=== PATIENT | female | born 1960 | race Hispanic/Latino ===

== ENCOUNTER 2018-04-01 11:37 | Inpatient (IN) | payer BC ==
[2018-04-01 11:59] VITALS: BMI 33.5
--- NOTE | 2018-04-01 12:32 | ED PDOC ---
Arrival/HPI - General Chief Complaint: Psychiatric Evaluation Time Seen by Provider: 04/01/18 11:39 Historian: Patient - History of Present Illness Narrative History of Present Illness (Text): 04/01/18 12:03 57 year old female, with past medical history of hypertension, and hyperlipidemia, presents to the Emergency department complaining of "feeling depressed" today. Patient expresses suicidal ideation stating she does not want to live anymore, however, patient does not have any plans. Patient denies homicidal ideation. Patient denies any other somatic complaints. She denies any fever, chills, nausea, vomiting, diarrhea, abdominal pain, chest pain, shortness of breath, neck pain, back pain, headache, dizziness, or any other complaints. Patient admits to smoking cigarettes everyday. Time/Duration: Prior to Arrival Symptom Onset: Gradual Symptom Course: Unchanged Activities at Onset: Light Context: Home Past Medical History - Provider Review Nursing Documentation Reviewed: Yes - Cardiac Hx Hypertension: Yes Hx Pacemaker: No - Neurological Hx Migraine: Yes Hx Paralysis: No - Renal Hx Kidney Stones: Yes Other/Comment: abscess removed from bladder - Endocrine/Metabolic Hx Endocrine Disorders: No - Hematological/Oncological Hx Blood Transfusions: Yes Hx Blood Transfusion Reaction: No - Musculoskeletal/Rheumatological Hx Musculoskeletal Disorders: Yes Hx Back Pain: Yes Other/Comment: bilateral leg pain - Gastrointestinal Hx Constipation: Yes Hx Irritable Bowel: Yes - Genitourinary/Gynecological Hx Genitourinary Disorders: No - Psychiatric Hx Anxiety: Yes Hx Depression: Yes Hx Emotional Abuse: No Hx Physical Abuse: No Hx Substance Use: No - Surgical History Hx Hysterectomy: Yes Other/Comment: hemorrhoid removal - Anesthesia Hx Anesthesia Reactions: Yes (VOMITING 3 DAYS POST OP LITHOTRIPSY) Hx Malignant Hyperthermia: No - Suicidal Assessment Feels Threatened In Home Enviroment: No Family/Social History - Physician Review Nursing Documentation Reviewed: Yes Family/Social History: No Known Family HX Smoking Status: Heavy Smoker > 10 Cigarettes Daily Hx Alcohol Use: No Hx Substance Use: No Allergies/Home Meds Allergies/Adverse Reactions: Allergies latex Allergy (Verified 04/02/18 03:54) RASH caffeine Adverse Reaction (Verified 04/02/18 03:54) PAIN Home Medications: Home Meds Medication Instructions Recorded Confirmed Atorvastatin [Lipitor] 20 mg PO DAILY 12/15/11 04/02/18 Metoprolol Succinate XL [Toprol XL] 75 mg PO DAILY 12/15/11 04/02/18 RX: Topiramate [Topamax] 50 mg PO BID 04/01/18 04/02/18 Review of Systems - Physician Review All systems were reviewed & negative as marked: Yes - Review of Systems Constitutional: absent: Fevers Respiratory: absent: SOB, Cough Cardiovascular: absent: Chest Pain Gastrointestinal: absent: Abdominal Pain, Diarrhea, Nausea, Vomiting Musculoskeletal: absent: Back Pain, Neck Pain Neurological: absent: Headache, Dizziness Psychiatric: Suicidal Ideation Physical Exam Vital Signs Reviewed: Yes Vital Signs Temp Pulse Resp BP Pulse Ox 04/01/18 11:56 97.9 F 61 18 150/92 H 99 Temperature: Afebrile Blood Pressure: Hypertensive Pulse: Regular Respiratory Rate: Normal Appearance: Positive for: Well-Appearing, Non-Toxic, Comfortable Pain Distress: None Mental Status: Positive for: Alert and Oriented X 3 - Systems Exam Head: Present: Atraumatic, Normocephalic Pupils: Present: PERRL Extroacular Muscles: Present: EOMI Conjunctiva: Present: Normal Mouth: Present: Moist Mucous Membranes Neck: Present: Normal Range of Motion Respiratory/Chest: Present: Clear to Auscultation, Good Air Exchange. No: Respiratory Distress, Accessory Muscle Use Cardiovascular: Present: Regular Rate and Rhythm, Normal S1, S2. No: Murmurs Abdomen: No: Tenderness, Distention, Peritoneal Signs Back: Present: Normal Inspection Upper Extremity: Present: Normal Inspection. No: Cyanosis, Edema Lower Extremity: Present: Normal Inspection. No: Edema Neurological: Present: GCS=15, CN II-XII Intact, Speech Normal Skin: Present: Warm, Dry, Normal Color. No: Rashes Psychiatric: Present: Alert, Oriented x 3, Normal Insight, Normal Concentration, Suicidal Ideation Medical Decision Making ED Course and Treatment: 04/01/18 12:03 Impression: 57 year old female presents to the Emergency department expressing depressed mood and suicidal ideation. Differential Diagnosis included but are not limited to: Suicidal Ideation Plan: -- EKG -- Labs -- Chest X-ray -- Urinalysis -- Reassess and disposition Prior Visits: Notes and results from previous visits were reviewed. Progress Notes: 04/01/18 12:15 EKG: Ordered, reviewed, and independently interpreted the EKG. Rate : 57 BPM Rhythm : Bradycardia Interpretation : No ST-segment elevations or depressions, no T-wave inversions, normal intervals. 04/01/18 12:15 Chest X-ray reviewed by me, shows no acute processes. 04/03/18 17:40 medically clear - RAD Interpretation Radiology Orders: 04/01/18 12:03 CHEST PORTABLE [RAD] Stat Customer Relations Specialist: Radiologist - Medication Orders Current Medication Orders: Discontinued Medications Nicotine (Nicoderm Cq) 1 patch TD DAILY ANGELINE Nicotine (Nicoderm Cq) 1 patch TD STAT STA Stop: 04/01/18 12:04 Disposition/Present on Arrival - Present on Arrival Any Indicators Present on Arrival: No History of DVT/PE: No History of Uncontrolled Diabetes: No Urinary Catheter: No History of Decub. Ulcer: No History Surgical Site Infection Following: None - Disposition Have Diagnosis and Disposition been Completed?: Yes Diagnosis: Depression Disposition: HOSPITALIZED Disposition Time: 07:00 Patient Problems: Current Active Problems Problem Status Onset Depression Acute Condition: STABLE
--- NOTE | 2018-04-01 13:24 | RAD ---
Date of service: 04/01/2018 HISTORY: tom COMPARISON: 10/23/2014 FINDINGS: LUNGS: No active pulmonary disease. PLEURA: No significant pleural effusion identified, no pneumothorax apparent. CARDIOVASCULAR: Normal. OSSEOUS STRUCTURES: No significant abnormalities. VISUALIZED UPPER ABDOMEN: Normal. OTHER FINDINGS: None. IMPRESSION: No active disease.
--- NOTE | 2018-04-01 14:03 | CARD ---
APPROVED REPORT Date of service: 04/01/2018 EKG Measurement Heart [id number] <Conclusion> Sinus bradycardia Otherwise normal ECG
[2018-04-01 16:04] LABS: BASO # 0.02 K/mm3 (0.0-2.0); BASO % 0.3 % (0.0-3.0); EOS # 0.2 (0.0-0.7); EOS % 2.4 % (1.5-5.0); GRAN # 4.58 (1.4-6.5); GRAN % 64.6 % (50.0-68.0); HEMOGLOBIN 14.6 g/dL (12.0-16.0); LYMPH # 2.1 (1.2-3.4); LYMPH % 29.2 % (22.0-35.0); MEAN CELL VOLUME 90.9 fl (80.0-105.0); MEAN CORPUSCULAR HEMOGLOBIN 30.4 pg (25.0-35.0); MEAN CORPUSCULAR HGB CONC 33.4 g/dl (31.0-37.0); MEAN PLATELET VOLUME 10.9 fl (7.0-11.0); MONO # 0.3 (0.1-0.6); MONO % 3.5 % (1.0-6.0); RBC 4.81 10^6/uL (3.5-6.1); RED CELL DISTRIBUTION WIDTH 13.1 % (11.5-14.5); WHITE BLOOD COUNT 7.1 10^3/ul (4.5-11.0)
[2018-04-01 16:08] LABS: ACETAMINOPHEN < 10.0 ug/ml (10.0-20.0); ALB/GLOB RATIO 1.4 (1.1-1.8); ALBUMIN 4.1 g/dL (3.0-4.8); ALT/SGPT 27 U/L (7-56); AST/SGOT 18 U/L (14-36); BLOOD UREA NITROGEN 22 mg/dL (7-21); CALCIUM 9.5 mg/dL (8.4-10.5); GFR NON-AFRICAN AMERICAN 57; SALICYLATE < 1 mg/dL (2.0-20.0)
[2018-04-01 16:14] LABS: PH,URINE 6.5 (4.7-8.0); URINE BILIRUBIN NEGATIVE (NEGATIVE); URINE BLOOD NEGATIVE (NEGATIVE); URINE GLUCOSE (UA) NEGATIVE (NEGATIVE); URINE LEUKOCYTE ESTERASE TRACE Leu/uL (NEGATIVE); URINE PROTEIN NEGATIVE mg/dL (<30 mg/dL); URINE UROBILINOGEN 0.2 E.U./dL (<1 E.U./dL)
[2018-04-01 16:15] LABS: URINE APPEARANCE CLEAR (CLEAR); URINE COLOR LIGHT YELLOW (YELLOW)
[2018-04-01 16:20] LABS: URINE AMORPHOUS SEDIMENT TRACE; URINE BACTERIA TRACE (NEG); URINE RBC NEGATIVE /hpf (0-2)
[2018-04-01 16:42] LABS: BARBITURATES, UR NEGATIVE (NEGATIVE); BENZODIAZEPINES, UR POSITIVE (NEGATIVE); OPIATES, UR NEGATIVE (NEGATIVE); PHENCYCLIDINE, UR NEGATIVE (NEGATIVE)
[2018-04-01 20:47] VITALS: O2SAT 98
[2018-04-01] MEDS ORDERED: Magnesium Hydroxide Susp 30 ml UD PO PRN (21:54)
--- NOTE | 2018-04-02 04:12 | PCM.BM ---
Treatment Plan Problems - Problems identified on initial assessmt Poor coping skills Date Initiated: 04/01/18 Time Initiated: 04:09 Assessment reference: NA Status: Monitor hopelessness Date Initiated: 04/01/18 Time Initiated: 21:45 Assessment reference: NA Status: Referred Treatment assets and liabiliti Patient Assests: motivated, good interpersonal skills Patient Liabilities: financial problems - Milieu Protocol Maintain good personal hygiene: daily Encourage regular showers, daily Remind patient to perform daily oral care, daily Assist patient to perform ADL's Maintain personal safety: daily Educate patient to report safety concerns to staff, daily Monitor environment for contraband/sharps Medication safety: Monitor for expected outcome, potential side effects: daily, Assess barriers to learning: daily, Assess readiness for medication education: daily Family Contact Family contact: Patient agrees to contact Family contact name: Vimal (Spouse) - Goals for Treatment Patient goals for treatment: To get better Discharge/Continuing Care - Education Needs Education Needs: Patient Medication, Patient Diagnosis/Disease Process, Patient Coping Skills
[2018-04-02 07:33] VITALS: RESP 20
[2018-04-02 08:27] LABS: GLUCOSE,FASTING 94 mg/dL (65-110); HDL CHOLESTEROL 33 mg/dL (29-60)
[2018-04-02 08:38] LABS: LDL CHOLESTEROL 61 mg/dL (0-129)
[2018-04-02] MEDS ORDERED: Bupivacaine 0.5% Inj(30mL) IJ ONE (14:45)
[2018-04-02] MEDS ORDERED: MethylPREDNISolone Depo 40 mg/ml Inj IM ONE (14:45)
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
--- NOTE | 2018-04-02 18:58 | PN ---
DATE: 04/02/2018 SUBJECTIVE: The patient was admitted in the Behavioral Care Unit for depression. The patient has significant past history. She has hypertension, hyperlipidemia. She has history of migraine, osteoarthritis, cervical spondylosis, hip pain, knee pain. The patient also has history of renal stones. The patient has history of bladder infection with abscess in the bladder that had been drained in the past. The patient also has a history of internal and external hemorrhoids. PHYSICAL EXAMINATION: GENERAL: The patient is pleasant. She complains of pain in the hip and she has had cortisone injection by Dr. Devonte Henley, orthopedic surgeon. She is seen resting in bed. VITAL SIGNS: Pulse is 54, blood pressure 123/87, respirations are 20, O2 sat is 98% on room air. HEENT: Head: Normocephalic. some reddish color. NECK: The thyroid is not enlarged. Carotid pulses are present. LUNGS: Trachea central. Breath sounds vesicular. No adventitious sounds. HEART: Normal sinus rhythm. S1, S2 present. ABDOMEN: Soft. Liver and spleen not palpable. BODY BUILDER: The patient has no focal deficits noted. LABORATORY DATA: The patient's blood work done in the hospital; hemoglobin is 14.6, white count is within normal range. The patient's chemistry; BUN is 22, creatinine is 1. Sugar is 94. Triglycerides are 133. Total cholesterol 124. The patient has been on Lipitor. The patient's TSH is 1.58, within normal range. Chest x-ray is clear. EKG showed normal sinus rhythm. The patient had recent diagnosis of depression. She had medical condition for which she needs medical management. List of medication consist of Ativan 2 mg p.o. every 6 hours p.r.n. The patient is on Geodon 20 mg every 6 hours p.r.n. The patient is on Maalox. The patient gets nicotine patch daily. The patient is on Prozac 10 mg daily, Sonata 5 mg at bedtime, Topamax 50 mg b.i.d., and Vistaril 50 mg every 8 hours p.r.n. for anxiety. The patient was also placed on Tylenol every 6 hours for pain. On review of her medications at outpatient shows the patient was on Percocet 10/325 for pain prescribed by a physician in [place]. However, at this time, we will give the patient Ultram 50 mg every 6 hours for pain and we will follow up. Sumaya Benitez MD
--- NOTE | 2018-04-03 02:20 | CON ---
DATE: 04/02/2018 ORTHOPEDIC CONSULT HISTORY OF PRESENT ILLNESS: The patient is a 57-year-old female complaining of primarily right hip pain with point tenderness over the right hip bursa, not the groin. Range of motion is good and there is no evidence of underlying osteoarthritis as the hip moves freely and both legs lengths are the same and full range of motion, but she has tenderness at right hip bursa over the greater trochanter with abductor muscles have increase pain when cross leg test is done on the right side. So with this, right hip bursitis, because she has trigger point pain. So, I told her the benefits of the cortisone injection, which was done with Depo-Medrol and Marcaine to decrease the inflammation and the pain. I told the nurse to put a little ice on it tonight and warm compressors and to do therapy for strengthening exercises. FINAL DIAGNOSIS: Right hip bursitis. I injected with Depo-Medrol and Marcaine for pain relief. Devonte Henley DO [place]
--- NOTE | 2018-04-03 11:55 | PN ---
DATE: 04/03/2018 SUBJECTIVE: The patient is in [facility] Behavioral Care Unit. She is admitted with depression. She has a history of arthritis, migraine. She has a history of cervical spondylosis and the patient also has history of hemorrhoids, urinary tract infection with abscess in the bladder that had been drained in the past. She is seen this morning, ambulating very gingerly with a walker. She is complaining of pain in the knees and the back. PHYSICAL EXAMINATION VITAL SIGNS: The pulse is 61, blood pressure 140/80, respirations are 20, O2 sat is 98% on room air. LUNGS: Clear. HEART: Normal sinus rhythm. ABDOMEN: Soft. Liver and spleen not palpable. MATERIAL HANDLER: No focal deficits. LABORATORY DATA: The patient's blood work was within reasonable range. The patient has family history of gout, so we will do a uric acid level and also sed rate. MEDICATIONS: Consist of Ativan. The patient is on Geodon, magnesium, milk of magnesia, nicotine patch for withdrawal from cigarette smoking. The patient is on topiramate, Sonata, Prozac. The patient is also getting Tramadol 50 mg three times a day p.r.n. for pain and Vistaril 50 mg p.o. every 8 hours for anxiety. Her condition appeared to be medically stable, needs acute management of degenerative arthritic condition. She is getting treatment for depression which probably needs more adjustment. Sumaya Benitez MD
--- NOTE | 2018-04-03 16:42 | PCM.PYCHPN ---
Psychiatric Progress Note - Psychiatric Progress Note Patient seen today, length of contact: 30 minutes Patient Chief Complaint: "it was a lot of things which bothered me" Problems Identified/Issues Discussed: Suicide/ homicide prevention, past psychiatric h/o, current psychiatric symptoms, medical problems, risk/benefits and alternatives of medications, medications compliance, coping strategies, substance abuse h/o, relapse prevention, importance of follow up with psychiatrist and therapist, discharge plan. Medical Problems: see HPI Diagnostic Results: 04/01/18 15:45 04/01/18 15:45 Lab Results 04/02/18 07:30: RPR Nonreactive 04/02/18 07:30: TSH 3rd Generation 1.58 04/02/18 07:30: Fasting Glucose 94, Triglycerides 133, Cholesterol 124 L, LDL Cholesterol Direct 61, HDL Cholesterol 33 04/01/18 16:00: Urine Opiates Screen Negative, Urine Methadone Screen Negative, Ur Barbiturates Screen Negative, Ur Phencyclidine Scrn Negative, Ur Amphetamines Screen Negative, U Benzodiazepines Scrn Positive H, U Oth Cocaine Metabols Negative, U Cannabinoids Screen Positive H 04/01/18 16:00: Urine Color Light yellow, Urine Appearance Clear, Urine pH 6.5, Ur Specific [place] 1.020, Urine Protein Negative, Urine Glucose (UA) Negative, Urine Ketones Negative, Urine Blood Negative, Urine Nitrate Negative, Urine Bilirubin Negative, Urine Urobilinogen 0.2, Ur Leukocyte Esterase Trace H, Urine RBC Negative, Urine WBC 1 - 3, Ur Epithelial Cells 3 - 4, Amorphous Sediment Trace, Urine Bacteria Trace 04/01/18 15:45: Alcohol, Quantitative < 10 04/01/18 15:45: Salicylates < 1 L, Acetaminophen < 10.0 L 04/01/18 15:45: Sodium 142, Potassium 4.5, Chloride 111 H, Carbon Dioxide 23, Anion Gap 12, BUN 22 H, Creatinine 1.0, Est GFR ( Amer) > 60, Est GFR (Non-Af Amer) 57, Random Glucose 98, Calcium 9.5, Magnesium 2.1, Total Bilirubin 0.6, AST 18, ALT 27, Alkaline Phosphatase 54, Total Protein 6.9, Albumin 4.1, Globulin 2.8, Albumin/Globulin Ratio 1.4 04/01/18 15:45: WBC 7.1, RBC 4.81, Hgb 14.6, Hct 43.7, MCV 90.9, MCH 30.4, MCHC 33.4, RDW 13.1, Plt Count 157, MPV 10.9, Gran % 64.6, Lymph % (Auto) 29.2, [place] % (Auto) 3.5, Eos % (Auto) 2.4, Baso % (Auto) 0.3, Gran # 4.58, Lymph # (Auto) 2.1, [place] # (Auto) 0.3, Eos # (Auto) 0.2, Baso # (Auto) 0.02 Vital Signs Temp Pulse Resp BP Pulse Ox 04/03/18 07:34 98.3 F 61 20 139/84 04/02/18 16:00 80 144/82 04/02/18 07:32 97.6 F 64 20 123/87 04/01/18 20:46 98 04/01/18 17:09 62 18 135/90 99 04/01/18 15:30 64 18 149/87 99 04/01/18 13:00 68 18 144/80 99 04/01/18 11:56 97.9 F 61 18 150/92 H 99 DSM 5 Symptoms Update: shortly patient is 57 year old male, reported history of depression and anxiety, patient denied history of being admitted to the psychiatric inpatient unit, denied history or suicidal attempts, patient has multiple social issues including family conflict with her brother in law, recent loss of her younger sister in May last year for pancreatic cancer, patient other sister has multiple strokes and currently lives in the alf, patient's son is addicted to opioids currently under treatment, patient also has marital problems, patient tried her best to schedule appointment with outpatient program but unfortunately next appointment was given to her in June 2018, patient was feeling overwhelmed, depressed, hopeless, helpless, express suicidal ideation with a plan to cut her wrist or overdose on medication patient was evaluated in the emergency room by PES worker, patient is willing to be admitted to the psychiatric inpatient unit, patient failed outpatient treatment, at present moment requires further evaluation, stabilization, medication initiation and titration. patient was seen and examined today at the treatment team meeting, patient presented with psychomotor retardation, marginal personal hygiene, very slow with her responses, monotonic low-volume and underproductive speech, fair ADLs. patient complained that she did not sleep last night Patient reported that her mood is the same, patient was appreciated for orthopedist consult as well as medical consult. As per staff patient still appears to be depressed, at times irritable, patient is self isolative. No agitation, no aggression. DSM 5 Diagnosis: major depressive disorder,recurrent, severe, no psychosis Rule out adjustment disorder with depressed and anxious mood Medication Change: Yes (sonata increased, trazodone started at the nighttime) Medical Record Reviewed: Yes Consults ordered or reviewed: medical consult ortho consult Mental Status Examination - Cognitive Function Orientation: Person, Place Memory: Intact Attention: Poor Concentration: Poor Association: WNL Fund of Knowledge: WNL - Mood Mood: Depressed - Affect Affect: Flat - Formal Thought Process Formal Thought Process: Circumstantial (over inclusive, circumstantial) - Suicidal Ideation Suicidal Ideation: No - Homicidal Ideation Homicidal Ideation: No Goal/Treatment Plan - Goal/Treatment Plan Need for Continued Stay: Remain at risks for inpatient hospitalization, Severe depression anxiety, Discharge may exacerbated symptoms, Severe functional impairment Progress Toward Problem(s) and Goals/Treatment Plan: Milieu/structure/supportive therapy Medical consult appreciated Orthopedic consult appreciated physical therapy evaluation prozac0 mg started for depression and anxiety Topamax for mood stabilization as well as headache prophylaxis Sonata will be increased to 10 mg at the nighttime Trazodone 50 mg as needed for insomnia and depression SW consultation for discharge plan and social issues Family involvement Follow up on labs Will monitor closely Pt was educated about risk/benefits and alternatives of medications, coping strategies (safety plan, suicide prevention), relapse prevention, importance of follow up with psychiatrist and therapist, stay away from drugs/alcohol/smoking Estimated Date of D/C: 04/08/18
[2018-04-04] MEDS: Alum-Mag Hydrox-Simethicone Susp (30 mL) PO PRN (02:01)
--- NOTE | 2018-04-04 15:29 | PCM.PYCHPN ---
Psychiatric Progress Note - Psychiatric Progress Note Patient seen today, length of contact: 30 minutes Patient Chief Complaint: "I slept better, my mood is improving" Problems Identified/Issues Discussed: Suicide/ homicide prevention, past psychiatric h/o, current psychiatric symptoms, medical problems, risk/benefits and alternatives of medications, medications compliance, coping strategies, substance abuse h/o, relapse prevention, importance of follow up with psychiatrist and therapist, discharge plan. Medical Problems: see HPI Diagnostic Results: 04/01/18 15:45 04/01/18 15:45 Lab Results 04/02/18 07:30: RPR Nonreactive 04/02/18 07:30: TSH 3rd Generation 1.58 04/02/18 07:30: Fasting Glucose 94, Triglycerides 133, Cholesterol 124 L, LDL Cholesterol Direct 61, HDL Cholesterol 33 04/01/18 16:00: Urine Opiates Screen Negative, Urine Methadone Screen Negative, Ur Barbiturates Screen Negative, Ur Phencyclidine Scrn Negative, Ur Amphetamines Screen Negative, U Benzodiazepines Scrn Positive H, U Oth Cocaine Metabols Negative, U Cannabinoids Screen Positive H 04/01/18 16:00: Urine Color Light yellow, Urine Appearance Clear, Urine pH 6.5, Ur Specific [place] 1.020, Urine Protein Negative, Urine Glucose (UA) Negative, Urine Ketones Negative, Urine Blood Negative, Urine Nitrate Negative, Urine Bilirubin Negative, Urine Urobilinogen 0.2, Ur Leukocyte Esterase Trace H, Urine RBC Negative, Urine WBC 1 - 3, Ur Epithelial Cells 3 - 4, Amorphous Sediment Trace, Urine Bacteria Trace 04/01/18 15:45: Alcohol, Quantitative < 10 04/01/18 15:45: Salicylates < 1 L, Acetaminophen < 10.0 L 04/01/18 15:45: Sodium 142, Potassium 4.5, Chloride 111 H, Carbon Dioxide 23, Anion Gap 12, BUN 22 H, Creatinine 1.0, Est GFR ( Amer) > 60, Est GFR (Non-Af Amer) 57, Random Glucose 98, Calcium 9.5, Magnesium 2.1, Total Bilirubin 0.6, AST 18, ALT 27, Alkaline Phosphatase 54, Total Protein 6.9, Albumin 4.1, Globulin 2.8, Albumin/Globulin Ratio 1.4 04/01/18 15:45: WBC 7.1, RBC 4.81, Hgb 14.6, Hct 43.7, MCV 90.9, MCH 30.4, MCHC 33.4, RDW 13.1, Plt Count 157, MPV 10.9, Gran % 64.6, Lymph % (Auto) 29.2, [place] % (Auto) 3.5, Eos % (Auto) 2.4, Baso % (Auto) 0.3, Gran # 4.58, Lymph # (Auto) 2.1, [place] # (Auto) 0.3, Eos # (Auto) 0.2, Baso # (Auto) 0.02 Vital Signs Temp Pulse Resp BP Pulse Ox 04/03/18 07:34 98.3 F 61 20 139/84 04/02/18 16:00 80 144/82 04/02/18 07:32 97.6 F 64 20 123/87 04/01/18 20:46 98 04/01/18 17:09 62 18 135/90 99 04/01/18 15:30 64 18 149/87 99 04/01/18 13:00 68 18 144/80 99 04/01/18 11:56 97.9 F 61 18 150/92 H 99 Microbiology 04/01/18 20:14 Urine Culture - Final Urine,Clean Catch Corynebacterium Species DSM 5 Symptoms Update: shortly patient is 57 year old male, reported history of depression and anxiety, patient denied history of being admitted to the psychiatric inpatient unit, denied history or suicidal attempts, patient has multiple social issues including family conflict with her brother in law, recent loss of her younger sister in May last year for pancreatic cancer, patient other sister has multiple strokes and currently lives in the [place] [facility], patient's son is addicted to opioids currently under treatment, patient also has marital problems, patient tried her best to schedule appointment with outpatient program but unfortunately next appointment was given to her in June 2018, patient was feeling overwhelmed, depressed, hopeless, helpless, express suicidal ideat ion with a plan to cut her wrist or overdose on medication patient was evaluated in the emergency room by PES worker, patient is willing to be admitted to the psychiatric inpatient unit, patient failed outpatient treatment, at present moment requires further evaluation, stabilization, medication initiation and titration. patient was seen and examined today next to the nursing station, pt said she feels better, pt said that she feels better because of her sleep is improving, pt has visited by her , "now we are at the same page, we are going to carol my brother in law". patient also reported improvement with her pain in her hip and knee, overall presented better. As per staff patient still appears to be depressed, at times irritable, patient is more visible in the unit. so far patient tolerated medications well, no side effects observed or reported, aims 0, no EPS. No agitation, no aggression. DSM 5 Diagnosis: major depressive disorder,recurrent, severe, no psychosis Rule out adjustment disorder with depressed and anxious mood Medication Change: No (adjusted yesterday) Medical Record Reviewed: Yes Consults ordered or reviewed: medical consult appreciated ortho consult Mental Status Examination - Cognitive Function Orientation: Person, Place Memory: Intact Attention: Poor (some improvement) Concentration: Poor (some improvement) Association: WNL Fund of Knowledge: WNL - Mood Mood: Depressed (I feel better) - Affect Affect: Constricted (but more reactive and mood congruent) - Formal Thought Process Formal Thought Process: Circumstantial (over inclusive, circumstantial) - Suicidal Ideation Suicidal Ideation: No - Homicidal Ideation Homicidal Ideation: No Goal/Treatment Plan - Goal/Treatment Plan Need for Continued Stay: Remain at risks for inpatient hospitalization, Severe depression anxiety, Discharge may exacerbated symptoms, Severe functional impairment Progress Toward Problem(s) and Goals/Treatment Plan: Milieu/structure/supportive therapy Medical consult appreciated Orthopedic consult appreciated physical therapy evaluation prozac 20 mg started for depression and anxiety Topamax for mood stabilization as well as headache prophylaxis Sonata increased to 10 mg at the nighttime Trazodone 50 mg as needed for insomnia and depression SW consultation for discharge plan and social issues Family involvement Follow up on labs Will monitor closely Pt was educated about risk/benefits and alternatives of medications, coping strategies (safety plan, suicide prevention), relapse prevention, importance of follow up with psychiatrist and therapist, stay away from drugs/alcohol/smoking medical team was notified about urine analysis results Estimated Date of D/C: 04/08/18
--- NOTE | 2018-04-04 16:01 | CP.PCM.PN ---
Subjective - Date & Time of Evaluation Date of Evaluation: 04/04/18 Time of Evaluation: 08:05 - Subjective Subjective: Patient seen this morning. She is admitted with depression. She also suffers from degenerative arthritis and migraine. Objective - Vital Signs/Intake and Output Vital Signs (last 24 hours): Temp Pulse Resp BP Pulse Ox 98.3 F 81 20 160/95 H 98 04/03/18 07:34 04/03/18 16:00 04/03/18 07:34 04/03/18 16:00 04/01/18 20:46 - Medications Medications: Current Medications Acetaminophen (Tylenol 325mg Tab) 650 mg PO Q6H PRN PRN Reason: Pain, Mild (1-3) Al Hydrox/Mg Hydrox/Simethicone (Maalox Plus 30 Ml) 30 ml PO DAILY PRN PRN Reason: Dyspepsia Last Admin: 04/04/18 02:01 Dose: 30 ml Ciprofloxacin (Cipro) 250 mg PO BID [facility]; Protocol Stop: 04/05/18 15:29 Last Admin: 04/04/18 15:54 Dose: 250 mg Fluoxetine HCl (Prozac) 10 mg PO DAILY [facility] Last Admin: 04/04/18 09:34 Dose: 10 mg Hydroxyzine Pamoate (Vistaril) 50 mg PO Q8 PRN; Protocol PRN Reason: Anxiety Lorazepam (Ativan) 2 mg PO Q6 PRN; Protocol PRN Reason: Anxiety Last Admin: 04/03/18 00:13 Dose: 2 mg Magnesium Hydroxide (Milk Of Magnesia) 30 ml PO DAILY PRN PRN Reason: Constipation Nicotine (Nicoderm Cq) 1 patch TD DAILY [facility] Last Admin: 04/04/18 09:33 Dose: 1 patch Topiramate (Topamax) 50 mg PO BID [facility]; Protocol Last Admin: 04/04/18 15:54 Dose: 50 mg Tramadol HCl (Ultram) 50 mg PO TID PRN PRN Reason: Pain, moderate (4-7) Trazodone HCl (Desyrel) 50 mg PO HS PRN PRN Reason: Insomnia Last Admin: 04/03/18 23:01 Dose: 50 mg Zaleplon (Sonata) 10 mg PO HS [facility] Last Admin: 04/03/18 21:11 Dose: 10 mg Ziprasidone (Geodon Cap) 20 mg PO Q6 PRN; Protocol PRN Reason: Agitation - Labs Labs: 04/01/18 15:45 04/01/18 15:45 - Constitutional Appears: No Acute Distress - Cardiovascular Exam Cardiovascular Exam: REGULAR RHYTHM, +S1, +S2 - GI/Abdominal Exam GI & Abdominal Exam: Soft, Normal Bowel Sounds. absent: Tenderness - Neurological Exam Neurological Exam: Alert, Awake Assessment and Plan - Assessment and Plan (Free Text) Assessment: Degenerative arthritis Migraine History of bladder infection Plan: Patient is on Tramadol as needed for pain. She also received a cortisone shot by Dr. Henley for bursitis of the hip. She will continue behavioral treatment as per psychiatry.
[2018-04-05] MEDS: Alum-Mag Hydrox-Simethicone Susp (30 mL) PO PRN (00:42)
[2018-04-05 07:24] VITALS: BP 138/74; PULSE 56; TEMP 97.8
[2018-04-05] MEDS ORDERED: Influenza Vaccine 60 mcg/0.5 mL SYR (4YR UP) IM ONE (11:38)
--- NOTE | 2018-04-05 12:22 | PN ---
DATE: 04/05/2018 SUBJECTIVE: She is awake and alert. Patient is in Behavioral Care Unit, room 519, bed 2. She is possibly going to be discharged today. She was admitted with depression. She has past history of migraine. Patient also has history of nicotine addiction. Patient also has history of urinary tract infection, hypertension, hyperlipidemia. PHYSICAL EXAMINATION: VITAL SIGNS: This morning, pulse is 56, blood pressure 138/74, respirations are 20, temperature 97.8. O2 sat is 98% on room air. HEENT: Patient's head is normocephalic. NECK: The thyroid not enlarged clinically. LUNGS: Clear. HEART: Normal sinus rhythm. ABDOMEN: Soft. No tenderness and no masses. BUILDING MOVER: No focal deficits. ASSESSMENT AND PLAN: Patient is being treated with Cipro 250 mg b.i.d. for mild urinary tract infection. Patient also takes Ultram for pain. Patient was on Topamax for migraine. Patient is on Desyrel 50 mg p.r.n. for insomnia. Patient was also getting Ativan 2 mg every 6 hours for anxiety. Her clinical condition improved. She seemed to be breathing better and she has answered all questions and she is pleasant in her disposition. Sumaya Benitez MD
--- NOTE | 2018-04-05 17:11 | PCM.PYCHDC ---
Mental Status Examination - Mental Status Examination Orientation: Person, Place, Situation, Time Memory: Intact Mood: Neutral Affect: Broad (and mood congruent) Speech: Appropriate Attention: WNL Concentration: WNL Association: WNL Fund of Knowledge: WNL Formal Thought Process: No Impairment Description of patient's judgement and insight: Pt has improved insight into mental and medical illness, pt was compliant with medications and unit rules and regulations, pt was going to groups, was calm, cooperative, socially appropriate, no behavioral incidents, no agitation, no aggression. Psychotic Thoughts and Behaviors: Pt denied v/a/t hallucinations, denied paranoid ideations, pt does not appear to be psychotic, and thought process is goal directed. Suicidal Ideation: No Current Homicidal Ideation?: No Plan: pt adamantly denied thoughts of harming self or others denied intent or plan. Discharge Summary - Discharge Note Reason for Hospitalization: patient was admitted to the psychiatric inpatient unit for evaluation and stabilization of depressive symptoms, inability to function, hopelessness, helplessness, suicidal ideation with a plan to cut her wrists. please see admission note for more detailed information Psychiatric History (includes Medical, Family, Personal Hx): see HPI Laboratory Data: 04/01/18 15:45 04/01/18 15:45 Lab Results 04/02/18 07:30: RPR Nonreactive 04/02/18 07:30: TSH 3rd Generation 1.58 04/02/18 07:30: Fasting Glucose 94, Triglycerides 133, Cholesterol 124 L, LDL Cholesterol Direct 61, HDL Cholesterol 33 04/01/18 16:00: Urine Opiates Screen Negative, Urine Methadone Screen Negative, Ur Barbiturates Screen Negative, Ur Phencyclidine Scrn Negative, Ur Amphetamines Screen Negative, U Benzodiazepines Scrn Positive H, U Oth Cocaine Metabols Nega tive, U Cannabinoids Screen Positive H 04/01/18 16:00: Urine Color Light yellow, Urine Appearance Clear, Urine pH 6.5, Ur Specific [place] 1.020, Urine Protein Negative, Urine Glucose (UA) Negative, Urine Ketones Negative, Urine Blood Negative, Urine Nitrate Negative, Urine Bilirubin Negative, Urine Urobilinogen 0.2, Ur Leukocyte Esterase Trace H, Urine RBC Negative, Urine WBC 1 - 3, Ur Epithelial Cells 3 - 4, Amorphous Sediment Trace, Urine Bacteria Trace 04/01/18 15:45: Alcohol, Quantitative < 10 04/01/18 15:45: Salicylates < 1 L, Acetaminophen < 10.0 L 04/01/18 15:45: Sodium 142, Potassium 4.5, Chloride 111 H, Carbon Dioxide 23, Anion Gap 12, BUN 22 H, Creatinine 1.0, Est GFR ( Amer) > 60, Est GFR (Non-Af Amer) 57, Random Glucose 98, Calcium 9.5, Magnesium 2.1, Total Bilirubin 0.6, AST 18, ALT 27, Alkaline Phosphatase 54, Total Protein 6.9, Albumin 4.1, Globulin 2.8, Albumin/Globulin Ratio 1.4 04/01/18 15:45: WBC 7.1, RBC 4.81, Hgb 14.6, Hct 43.7, MCV 90.9, MCH 30.4, MCHC 33.4, RDW 13.1, Plt Count 157, MPV 10.9, Gran % 64.6, Lymph % (Auto) 29.2, [place] % (Auto) 3.5, Eos % (Auto) 2.4, Baso % (Auto) 0.3, Gran # 4.58, Lymph # (Auto) 2.1, [place] # (Auto) 0.3, Eos # (Auto) 0.2, Baso # (Auto) 0.02 Vital Signs Temp Pulse Resp BP Pulse Ox 04/05/18 07:23 97.8 F 56 L 20 138/74 04/04/18 16:00 55 L 142/92 H 04/03/18 16:00 81 160/95 H 04/03/18 07:34 98.3 F 61 20 139/84 04/02/18 16:00 80 144/82 04/02/18 07:32 97.6 F 64 20 123/87 04/01/18 20:46 98 04/01/18 17:09 62 18 135/90 99 04/01/18 15:30 64 18 149/87 99 04/01/18 13:00 68 18 144/80 99 04/01/18 11:56 97.9 F 61 18 150/92 H 99 Consultations:: List each consultation separately and include: 1. Reason for request. 2. Findings. 3. Follow-up Consultations: medical consult appreciated ortho consult appreciated Please see notes for more detailed information Summary of Hospital Course include:: 1. Description of specific treatment plan utilized for patients during their course of treatmen. 2. Summarize the time- course for resolution of acute symptoms and/or regressed behaviors. 3. Describe issues identified and worked on during hospitalization. 4. Describe medication utilized. 5. Describe medical problems identified and treated. 6. Reassessment of suicide risk Summary of Hospital Course: shortly patient is 57 year old male, reported history of depression and anxiety, patient denied history of being admitted to the psychiatric inpatient unit, denied history or suicidal attempts, patient has multiple social issues including family conflict with her brother in law, recent loss of her younger sister in May last year for pancreatic cancer, patient other sister has multiple strokes and currently lives in the [facility], patient's son is addicted to opioids currently under treatment, patient also has marital problems, patient tried her best to schedule appointment with outpatient program but unfortunately next appointment was given to her in June 2018, patient was feeling overwhelmed, depressed, hopeless, helpless, express suicidal ideation with a plan to cut her wrist or overdose on medication patient was evaluated in the emergency room by PES worker, patient is willing to be admitted to the psychiatric inpatient unit, patient failed outpatient treatment, at present moment requires further evaluation, stabilization, medication initiation and titration. at the time of admission patient presented to be depressed, hopeless, had psychomotor retardation, please see admission note for more detailed information 04/01/18 15:45 04/01/18 15:45 Lab Results 04/02/18 07:30: TSH 3rd Generation 1.58 04/02/18 07:30: Fasting Glucose 94, Triglycerides 133, Cholesterol 124 L, LDL Cholesterol Direct 61, HDL Cholesterol 33 04/01/18 16:00: Urine Opiates Screen Negative, Urine Methadone Screen Negative, Ur Barbiturates Screen Negative, Ur Phencyclidine Scrn Negative, Ur Amphetamines Screen Negative, U Benzodiazepines Scrn Positive H, U Oth Cocaine Metabols Negative, U Cannabinoids Screen Positive H 04/01/18 16:00: Urine Color Light yellow, Urine Appearance Clear, Urine pH 6.5, Ur Specific [place] 1.020, Urine Protein Negative, Urine Glucose (UA) Negative, Urine Ketones Negative, Urine Blood Negative, Urine Nitrate Negative, Urine Bilirubin Negative, Urine Urobilinogen 0.2, Ur Leukocyte Esterase Trace H, Urine RBC Negative, Urine WBC 1 - 3, Ur Epithelial Cells 3 - 4, Amorphous Sediment Trace, Urine Bacteria Trace 04/01/18 15:45: Alcohol, Quantitative < 10 04/01/18 15:45: Salicylates < 1 L, Acetaminophen < 10.0 L 04/01/18 15:45: Sodium 142, Potassium 4.5, Chloride 111 H, Carbon Dioxide 23, Anion Gap 12, BUN 22 H, Creatinine 1.0, Est GFR ( Amer) > 60, Est GFR (Non-Af Amer) 57, Random Glucose 98, Calcium 9.5, Magnesium 2.1, Total Bilirubin 0.6, AST 18, ALT 27, Alkaline Phosphatase 54, Total Protein 6.9, Albumin 4.1, Globulin 2.8, Albumin/Globulin Ratio 1.4 04/01/18 15:45: WBC 7.1, RBC 4.81, Hgb 14.6, Hct 43.7, MCV 90.9, MCH 30.4, MCHC 33.4, RDW 13.1, Plt Count 157, MPV 10.9, Gran % 64.6, Lymph % (Auto) 29.2, [place] % (Auto) 3.5, Eos % (Auto) 2.4, Baso % (Auto) 0.3, Gran # 4.58, Lymph # (Auto) 2.1, [place] # (Auto) 0.3, Eos # (Auto) 0.2, Baso # (Auto) 0.02 Vital Signs Temp Pulse Resp BP Pulse Ox 04/02/18 07:32 97.6 F 64 20 123/87 04/01/18 20:46 98 04/01/18 17:09 62 18 135/90 99 04/01/18 15:30 64 18 149/87 99 04/01/18 13:00 68 18 144/80 99 04/01/18 11:56 97.9 F 61 18 150/92 H 99 over the course of this hospitalization patient was stabilized on the following medication: prozac 20 mg started for depression and anxiety Topamax for mood stabilization as well as headache prophylaxis Sonata 10 mg at the nighttime Trazodone 50 mg as needed for insomnia and depression ppatient tolerated medications well, no side effects observed or reported, aims 0, no EPS. Over the course of this hospitalization pt was attending groups, pt also had medication management, had therapeutic milieu. Overall pt improved significantly, pt's affect became brighter, pt was less depressed, has realistic future oriented plans, pt also does not appear to be psychotic, or anxious, pt was socially appropriate, no behavioral issues, pts insight improved as well and soon pt deemed to be ready for discharge. At the time of the discharge pt denied been depressed, denied thoughts of harming self or others, denied psychotic symptoms, and pt does not appeared to be psychotic, denied been anxious, pt is not in imminent danger to self or others, pt was provided with appointment at [facility] information about follow up appointment, time and address provided to the pt, it is patient responsibility to follow up with outpatient clinic, PMD as well as specialists (see SW note for more detailed information). In case pt will need to obtain results of studies pending at discharge pt was provided with contact information of Psychiatric Inpatient unit [phone] as well as Medical Record Department [phone]. smoking cessation treatment program information was provided by the pt was provided with prescriptions for all of medications (please see medication reconciliation form) Pt was educated about safety plan in case of worsening of symptoms or in case of suicidal or homicidal ideation call 911 or go to the nearest ER, also was educated to take meds as prescribed and stay away from drugs, pt verbalized understanding. - Diagnosis (1) MDD (major depressive disorder) Status: Chronic Priority: High - Final Diagnosis (DSM 5) Condition upon Discharge: IMPROVED Disposition: HOME/ ROUTINE Follow-up Treatment Plan: Over the course of this hospitalization pt was attending groups, pt also had medication management, had therapeutic milieu. Overall pt improved significantly, pt's affect became brighter, pt was less depressed, has realistic future oriented plans, pt also does not appear to be psychotic, or anxious, pt was socially appropriate, no behavioral issues, pts insight improved as well and soon pt deemed to be ready for discharge. At the time of the discharge pt denied been depressed, denied thoughts of harming self or others, denied psychotic symptoms, and pt does not appeared to be psychotic, denied been anxious, pt is not in imminent danger to self or others, pt was provided with appointment at [facility] information about follow up appointment, time and address provided to the pt, it is patient responsibility to follow up with outpatient clinic, PMD as well as specialists (see SW note for more detailed information). In case pt will need to obtain results of studies pending at discharge pt was provided with contact information of Psychiatric Inpatient unit [phone] as well as Medical Record Department [phone]. smoking cessation treatment program information was provided by the [facility] pt was provided with prescriptions for all of medications (please see medication reconciliation form) Pt was educated about safety plan in case of worsening of symptoms or in case of suicidal or homicidal ideation call 911 or go to the nearest ER, also was educated to take meds as prescribed and stay away from drugs, pt verbalized understanding. Prescriptions/Medication Reconciliation: FLUoxetine [Prozac] 10 mg PO DAILY #14 cap Nicotine 21 mg/24 hr [Nicoderm Cq] 1 patch TD DAILY #14 patch Topiramate [Topamax] 50 mg PO BID #30 tab traZODone [Desyrel] 50 mg PO HS PRN #14 tab PRN Reason: Insomnia Zaleplon [Sonata] 10 mg PO HS #14 cap - Smoking Cessation Smoking Cessation Medication prescribed: Yes - Antipsychotic Medications Pt discharged on 2 or more routine antipsychotic medications: No
== END 2018-04-05 15:15 | disposition home or self-care (01) | DRG 885 ==
LOC: ED 11:37 → ERH 16:17 → PSYC 20:37
PROVIDERS: ADMIT Psychiatry & Neurology Psychiatry; ATTEND Psychiatry & Neurology Psychiatry
PROC: 3E0233Z Introduction of Anti-inflammatory into Muscle, Percutaneous Approach (ICD-10-PCS; principal; 2018-04-02)
PROC: 3E023BZ Introduction of Anesthetic Agent into Muscle, Percutaneous Approach (ICD-10-PCS; 2018-04-02)
PROC: 3E02340 Introduction of Influenza Vaccine into Muscle, Percutaneous Approach (ICD-10-PCS; 2018-04-05)
DX: F33.2 Major depressive disorder, recurrent severe without psychotic features (principal); N39.0 Urinary tract infection, site not specified; R45.851 Suicidal ideations; F41.9 Anxiety disorder, unspecified; M70.71 Other bursitis of hip, right hip; I10 Essential (primary) hypertension; F17.210 Nicotine dependence, cigarettes, uncomplicated; M19.90 Unspecified osteoarthritis, unspecified site; G43.909 Migraine, unspecified, not intractable, without status migrainosus; M47.812 Spondylosis without myelopathy or radiculopathy, cervical region; E78.5 Hyperlipidemia, unspecified; Z23 Encounter for immunization